=== PATIENT | male | born 1965 | race Caucasian/White ===

== ENCOUNTER 2019-11-07 09:03 | Day surgery (SDC) | payer OTHER ==
[~2019-11-07] VITALS: Ht 182.9 cm; Wt 131.6 kg
[~2019-11-07 09:03] MED LIST: B-12 1,000 MCG1 EACH PO; DIAZ5 PO; FENO145; FENOFIBRATE145 MG PO; FISH1000 PO; FOLI1; Fish Oil Conc1000 MG; HEALTHY HEART1 EACH PO; HYDMOR2 PO; HYDR1TAB94 PO; MULVITMIND PO; OXYC5 PO; PROBIOTIC1 EAC1 PO; TURMERIC500 M2 PO; Vitamin D400 UNI1 PO; [UNRECOGNIZED DRUG - OTHER]
--- NOTE | 2019-11-07 10:12 | NUR ---
11/07/19 1012 Mariely Mendze BLOOD FOR PRP IS DRAWN AND DELIVERED TO OR AND SPUN DOWN.
== END 2019-11-07 14:05 | disposition home or self-care (01) ==
LOC: ORSCSDS 09:03
PROVIDERS: Orthopaedic Surgery
PROC: 0LS24ZZ Reposition Left Shoulder Tendon, Percutaneous Endoscopic Approach (ICD-10-PCS; principal; 2019-11-07 10:30)
PROC: 0LQ24ZZ Repair Left Shoulder Tendon, Percutaneous Endoscopic Approach (ICD-10-PCS; principal; 2019-11-07 10:30)
PROC: 0LU24JZ Supplement Left Shoulder Tendon with Synthetic Substitute, Percutaneous Endoscopic Approach (ICD-10-PCS; principal; 2019-11-07 10:30)
PROC: 0RNK4ZZ Release Left Shoulder Joint, Percutaneous Endoscopic Approach (ICD-10-PCS; principal; 2019-11-07 10:30)
PROC: 0RBK4ZZ Excision of Left Shoulder Joint, Percutaneous Endoscopic Approach (ICD-10-PCS; principal; 2019-11-07 10:30)
DX: M75.122 Complete rotator cuff tear or rupture of left shoulder, not specified as traumatic (principal); M75.42 Impingement syndrome of left shoulder; S46.102D Unspecified injury of muscle, fascia and tendon of long head of biceps, left arm, subsequent encounter; I10 Essential (primary) hypertension; E78.00 Pure hypercholesterolemia, unspecified; E66.01 Morbid (severe) obesity due to excess calories; Z68.42 Body mass index [BMI] 45.0-49.9, adult
CPT/HCPCS: C1713; J0171; J0690; J1100; J2250; J2370; J2405; J2704; J2795; J3010; J7120

== ENCOUNTER 2021-01-15 19:24 | Emergency (ER) | payer OTHER ==
[~2021-01-15] VITALS: Ht 182.9 cm; Wt 132.9 kg
[2021-01-15] MEDS ORDERED: LOSA50 PO (19:30)
[2021-01-15] MEDS ORDERED: CO Q10100 MG PO (19:31)
[2021-01-15 19:45] LABS: Source, Urine Clean Catch
[2021-01-15 19:45] LABS: BASOPHILS ABSOLUTE AUTO 0.05 K/mm3 (0.00-0.23); BASOPHILS PERCENT AUTO 1 % (0-2); EOSINOPHILS ABSOLUTE AUTO 0.15 K/mm3 (0.00-0.68); EOSINOPHILS PERCENT AUTO 2 % (0-6); Hematocrit 42.4 % (37.0-53.0); Hemoglobin 14.4 g/dL (13.5-17.5); IMMATURE GRAN ABSOLUTE AUTO 0.01 K/mm3 (0.00-0.10); IMMATURE GRAN PERCENT AUTO 0 % (0-1); LYMPHOCYTES ABSOLUTE AUTO 4.16 K/mm3 (0.84-5.20); LYMPHOCYTES PERCENT AUTO 42 % (21-46); MONOCYTES ABSOLUTE AUTO 1.24 K/mm3 (0.16-1.47); MONOCYTES PERCENT AUTO 12 % (4-13); Mean Corpuscular HGB 29.6 pg (26.0-34.0); Mean Corpuscular Volume 87 fL (80-100); Mean Platelet Volume 10.4 fL (9.1-12.4); NEUTROPHILS ABSOLUTE AUTO 4.37 K/mm3 (1.96-9.15); NEUTROPHILS PERCENT AUTO 44 % (41-73); Platelet Count 184 K/mm3 (150-400); RDW Coefficient Variation 12.5 % (11.7-14.2); RDW Standard Deviation 40.1 fL (35.1-46.3); Red Blood Cell Count 4.87 M/mm3 (4.30-5.90); White Blood Cell Count 9.98 K/mm3 (4.00-11.30)
[2021-01-15 19:49] LABS: Appearance, Urine Clear (Clear); Bilirubin, Urine Neg (Neg); Blood, Urine Neg (Neg); Color, Urine Yellow (P-Yellow); Glucose Qualitative, Urine Neg (Neg); Ketones, Urine Neg (Neg); Leukocyte Esterase, Urine Neg (Neg); Nitrite, Urine Neg (Neg); Protein, Urine Neg (Neg); Urobilinogen, Urine NORM (Normal)
[2021-01-15 20:06] LABS: Alanine Aminotransfer (ALT/SGP 44 U/L (12-78); Albumin, Blood 3.4 g/dL (3.4-5.0); Albumin/Globulin Ratio 0.9 (0.8-1.8); Alk Phos 83 U/L (50-136); Anion Gap 5 mmol/L (6-16); Aspartate Aminotrans (AST/SGOT 41 U/L (12-37); Bilirubin, Total 0.7 mg/dL (0.1-1.0); Blood Urea Nitrogen 22 mg/dL (8-24); Bun/Creatinine Ratio 26.9 (12.0-20.0); CO2, Blood 26 mmol/L (21-32); Calcium, Blood 8.7 mg/dL (8.5-10.1); Chloride, Blood 106 mmol/L (98-108); Creatinine, Blood 0.82 mg/dL (0.60-1.20); Globulin, Blood 3.6 g/dL (2.2-4.0); Glomerular Filtration Rate >60 (60-); Glucose, Blood 93 mg/dL (70-99); Potassium, Blood 3.7 mmol/L (3.5-5.5); Sodium, Blood 137 mmol/L (136-145)
[2021-01-15] MEDS ORDERED: LIDO700A20 TOP (22:17)
[2021-01-15] MEDS ORDERED: CYCL10 PO (22:17)
== END 2021-01-15 22:36 | disposition home or self-care (01) ==
LOC: ER 19:24
PROVIDERS: Physician Assistant
DX: R10.9 Unspecified abdominal pain (principal)
CPT/HCPCS: 36415; 74176; 80053; 81003; 85025; 99284-25; A9270

== ENCOUNTER → 2022-05-21 | Outpatient (CLI) | payer OTHER ==
[~2022-05-21] MED LIST changes: +CO Q10100 MG PO; +CYCL10 PO; +LIDO700A20 TOP; +LOSA50 PO
== END ==
LOC: LAB 09:42 → LAB SHORT 09:42
DX: K59.09 Other constipation (principal)
CPT/HCPCS: 83993